=== PATIENT | male | born 1985 | race Caucasian/White ===

== ENCOUNTER 2017-10-15 16:06 | Outpatient (CLI) ==
[2013-06-20 06:17] VITALS: BMI 27.8
[2017-10-15 16:27] LABS: BILIRUBIN,URINE Negative (NEGATIVE); KETONES,URINE Negative (NEGATIVE); LEUKOCYTE ESTERASE ,URINE Trace (NEGATIVE); NITRITE,URINE Negative (NEGATIVE); PROTEIN,URINE Negative (NEGATIVE); URINE, BLOOD Negative (NEGATIVE)
[2017-10-15 16:34] LABS: ADD URINE MICROSCOPIC YES
[2017-10-15 16:39] LABS: ALBUMIN 4.1 g/dL (3.4-5.0); ALBUMIN/GLOBULIN RATIO 1.21; ANION GAP 14.4; BILIRUBIN,TOTAL 0.57 mg/dL (0.00-1.20); BUN/CREATININE RATIO 8.88; CALCIUM 9.9 mg/dL (8.2-10.2); CREATININE 0.9 mg/dL (0.60-1.10); POTASSIUM 4.4 mmol/L (3.5-5.1); TOTAL PROTEIN 7.5 g/dL (6.4-8.2)
== END 2017-10-15 16:07 | disposition home or self-care (01) ==
LOC: LAB 16:06
PROVIDERS: ATTEND Nurse Practitioner Family
DX: Z20.2 Contact with and (suspected) exposure to infections with a predominantly sexual mode of transmission (principal)
CPT/HCPCS: 36415; 80053; 80074; 81001; 86592; 86631; 86695; 86696; 86701; 87800

== ENCOUNTER 2019-03-19 05:03 | Outpatient (CLI) ==
[2019-03-19 08:36] VITALS: BMI 29.7
== END 2019-03-19 05:10 | disposition critical access hospital (66) ==
LOC: AMBL 05:03
PROVIDERS: ATTEND Family Medicine
DX: R40.4 Transient alteration of awareness (principal); R11.10 Vomiting, unspecified

== ENCOUNTER 2019-03-19 05:17 | Observation (INO) ==
[2019-03-19] MEDS ORDERED: SODIUM CHLORIDE 1,000 ML IV STA ×2 (05:45)
--- NOTE | 2019-03-19 06:27 | ED.PDOC ---
General ED Provider: Dr. FRANCISCO J TAN-ER Chief Complaint: Alcohol Intoxication Stated Complaint: brought in by p.d.---see nursing triage Time Seen by Physician: 05:30 Mode of Arrival: Ambulance Information Source: EMT, Police Exam Limitations: No limitations Nursing and Triage Documentation Reviewed and Agree: Yes Does patient meet sepsis criteria?: No System Inflammatory Response Syndrome: Not Applicable Sepsis Protocol: For patient's 13 years and over: Temp is 96.8 and below OR 101 and greater Pulse >90 BPM Resp >20/minute Acutely Altered Mental Status Are patient's symptoms suggestive of a new infection, such as: -Pneumonia -Skin, Soft Tissue -Endocarditis -UTI -Bone, Joint Infection -Implantable Device -Acute Abdominal Infection -Wound Infection -Meningitis -Blood Stream Catheter Infection -Unknown Neurological Complaint Exam - Altered Mental Status Complaint/Exam Current Mental Status: Unresponsiveness Symptoms Are: Still present Initial Severity: Mild Current Severity: Mild Eye Deviation Present: No Character: Reports: Responsiveness Aggravating: Reports: Ingestion Associated Signs and Symptoms: Denies: Dizziness, Weakness, Headache, Fever, Illness, Nuchal rigidity, Seizure, Nausea, Vomiting, Recently depressed, Trauma CVA Risk Factors: Reports: None Related Surgical History: Reports: None Carotid Bruit Present: No Nystagmus Present: No Gag Reflex Present: Yes Meningeal Signs Positive: No Focal Weakness: Present: None Focal Sensory Loss: Present: None Gait: Normal [id number]: Normal Findings Romberg Test Positive: No Babinski Sign: Negative Right, Negative Left Heel to Toe Normal: Yes Signs of Injury: Present: Normal findings Differential Diagnoses: Intoxication, Overdose Review of Systems - Review Of Systems Constitutional: Reports: No symptoms Eyes: Reports: No symptoms Ears, Nose, Mouth, Throat: Reports: No symptoms Respiratory: Reports: No symptoms Cardiac: Reports: No symptoms GI: Reports: No symptoms : Reports: No symptoms Musculoskeletal: Reports: No symptoms Skin: Reports: No symptoms Neurological: Reports: Cognitive dysfunction Endocrine: Reports: No symptoms Hematologic/Lymphatic: Reports: No symptoms All Other Systems: Reviewed and Negative Past Medical History - Past Medical History Previously Healthy: Yes Endocrine: Reports: Unknown Cardiovascular: Reports: Unknown Respiratory: Reports: Unknown Hematological: Reports: Unknown Gastrointestinal: Reports: Unknown Genitourinary: Reports: Unknown Neuro/Psych: Reports: Unknown Musculoskeletal: Reports: Unknown Cancer: Reports: Unknown - Surgical History General Surgical History: Reports: Unknown - Family History Family History: Reports: Unknown - Social History Smoking Status: Current every day smoker, Heavy tobacco smoker Hx Substance Use: No Alcohol Screening: Occasionally - Immunizations Tetanus Shot up to Date: Yes Physical Exam - Physical Exam Appearance: Well-appearing Eyes: KRYSTA, EOMI, Conjunctiva clear ENT: Ears normal, Nose normal, Oropharynx normal Respiratory: Airway patent, Breath sounds clear, Breath sounds equal, Respirations nonlabored Cardiovascular: RRR, Pulses normal, No rub, No murmur GI/: Soft, Nontender, No masses, Bowel sounds normal, No Organomegaly Musculoskeletal: Normal strength, ROM intact, No edema, No calf tenderness Skin: Warm, Dry, Normal color Neurological: Disoriented, Unresponsive Psychiatric: Affect appropriate, Mood appropriate Interpretation - Radiology Interpretation Radiology Interpretation By: Radiologist Radiology Results: Negative Exam Interpreted: CT Scan - EKG Interpretation Time of EKG #1: 06:33 Rate: Normal Rhythm: Sinus Ectopy: None Fowler: NL ST Segment: Normal Interpretation: nsr Critical Care Note - Critical Care Note Total Time (mins): 0 Course - Course Hematology/Chemistry: 03/19/19 05:55 03/19/19 05:55 Orders, Labs, Meds: Lab Review 03/19/19 03/19/19 05:55 05:55 WBC 6.83 RBC 4.34 L Hgb 13.6 L Hct 38.4 L MCV 88.5 MCH 31.3 H MCHC 35.4 RDW Coeff of Elis 13.2 Plt Count 204 Immature Gran % (Auto) 0.4 Neut % (Auto) 67.3 Lymph % (Auto) 20.1 Amite % (Auto) 10.2 H Eos % (Auto) 1.3 Baso % (Auto) 0.7 Immature Gran # (Auto) 0.0 Neut # (Auto) 4.6 Lymph # (Auto) 1.4 [place]ite # (Auto) 0.7 Eos # (Auto) 0.1 Baso # (Auto) 0.1 Sodium 141.8 Potassium 3.45 L Chloride 108.8 H Carbon Dioxide 21.7 L Anion Gap 14.75 BUN 10.5 Creatinine 0.77 Estimated GFR (MDRD) 114.00 BUN/Creatinine Ratio 13.63 Glucose 110.7 H Calcium 7.82 L Total Bilirubin 0.29 AST 26.6 ALT 22.4 Alkaline Phosphatase 89.1 Total Protein 6.80 Albumin 4.42 Globulin 2.38 Albumin/Globulin Ratio 1.85 Plasma/Serum Alcohol 220.4 H Orders Category Date Time Status ADMIT OBSERVATION [PLACE PATIENT OBSERVATION] .TO ADMISSION 03/19/19 06:30 Active SCU (MONITORED BED) EKG-(ED ONLY) Stat CARDIO 03/19/19 05:46 Completed ACTIVITY .BR with BRP CARE 03/19/19 06:31 Active INTAKE & OUTPUT Q8HR CARE 03/19/19 06:31 Active TELEMETRY MONITORING TELE CARE 03/19/19 06:31 Active VITAL SIGNS Q4HR CARE 03/19/19 06:31 Active VITAL SIGNS Q8HR CARE 03/19/19 06:31 Active REGULAR DIET DIETARY 03/19/19 Breakfast Ordered Astrobiologist [ED CARTOON ARTIST APPLIED] .ONCE EMERGENCY 03/19/19 05:45 Active IV [ED IV/MEDIPORT/POWERPORT] .ONCE EMERGENCY 03/19/19 05:36 Active CBC W/ AUTO DIFF Stat LAB 03/19/19 05:55 Completed COMPREHENSIVE METABOLIC PANEL Stat LAB 03/19/19 05:55 Completed ETOH LEVEL [BLOOD ALCOHOL] Stat LAB 03/19/19 05:55 Completed URINALYSIS C & S IF INDICATED Stat LAB 03/19/19 05:46 Uncollected URINE DRUG SCREEN (RAPID FOR ED) [DRUG SCREEN, URINE, LAB 03/19/19 05:46 Uncollected RAPID] Stat 0.9 % Sodium Chloride [Saline Flush] MEDS 03/19/19 05:36 Ordered 1 syr IVF PRN PRN Potassium Chloride/D5-0.9%NaCl [D5%-Ns-KCl 20 Meq/l IV MEDS 03/19/19 07:00 Ordered Evi] 1,000 ml IV 75 mls/hr Sodium Chloride 0.9% [Sodium Chloride] 1,000 ml MEDS 03/19/19 05:45 Active IV BOLUS Sodium Chloride 0.9% [Sodium Chloride] 1,000 ml MEDS 03/19/19 05:45 Active IV BOLUS RESUSCITATION STATUS Routine OTHERS 03/19/19 06:[address] HEAD W/O CONTRAST Stat RADS 03/19/19 05:46 Completed Medications Generic Name Dose Route Start Last Admin Trade Name Freq PRN Reason Stop Dose Admin Sodium Chloride 1,000 mls @ 1,000 mls/hr 03/19/19 05:45 03/19/19 06:22 Sodium Chloride IV 03/19/19 06:44 1,000 mls/hr BOLUS STA Administration Sodium Chloride 1,000 mls @ 1,000 mls/hr 03/19/19 05:45 03/19/19 06:22 Sodium Chloride IV 03/19/19 06:44 1,000 mls/hr BOLUS STA Administration Potassium Chloride/Dextrose/Sod Cl 1,000 mls @ 75 mls/hr 03/19/19 07:00 D5%-Ns-Kcl 20 Meq/L Iv Evi IV .[id number] JADE Sodium Chloride 1 syr 03/19/19 05:36 03/19/19 06:22 Saline Flush IVF 1 syr PRN PRN Administration To flush IV Vital Signs: Temp Pulse Resp BP Pulse Ox 03/19/19 06:20 70 20 103/60 97 03/19/19 05:27 98.2 F 84 14 119/62 100 Departure - Departure Time of Disposition: 06:30 Disposition: PLACED OBSERVATION Discharge Problem: Alcohol intoxication Instructions: Alcohol Intoxication (ED) Condition: Stable Pt referred to PMD for follow-up: No IPMP verified?: No Allergies/Adverse Reactions: Allergies No Known Allergies Allergy (Unverified 03/19/19 05:35) Home Medications: Ambulatory Orders 1 [Unobtainable] 03/19/19 Disposition Discussed With: Patient
--- NOTE | 2019-03-19 06:27 | CT ---
EXAM: CT head without contrast 03/19/2019. Sagittal and coronal reformatted images obtained HISTORY: Mental status changes COMPARISON: None. FINDINGS: There is no evidence of intracranial hemorrhage. The midline is maintained. There is no h ydrocephalus. No cerebellar tonsillar ectopia. Evaluation of the calvarium shows no fracture. Th e mastoid air cells are normally pneumatized. IMPRESSION: No acute intracranial abnormality.
[2019-03-19] MEDS ORDERED: D5%-NS-KCL 20 MEQ/L IV SOL 1,000 ML IV SCH (07:00)
[2019-03-19 08:36] VITALS: BMI 29.7
[2019-03-19] MEDS ORDERED: NICODERM 21 MG TD SCH (10:00)
[2019-03-19 10:08] VITALS: BP 113/73; TEMP 97.8
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
== END 2019-03-19 11:10 | disposition left against medical advice (07) ==
LOC: ED 05:17 → SCU 08:02 → UNDOADMOB 08:02 → UNDODISOB 11:10
PROVIDERS: ADMIT Family Medicine; ATTEND Family Medicine
DX: F10.129 Alcohol abuse with intoxication, unspecified (principal); Z72.0 Tobacco use; R40.20 Unspecified coma; R11.10 Vomiting, unspecified
CPT/HCPCS: 36415; 80053; 80306; 80307; 81001; 85025; 93005; 93010; 96360; 96361; 99220; 99284

== ENCOUNTER 2019-04-05 19:26 | Emergency (ER) ==
[2019-04-05 19:30] VITALS: BP 155/77; TEMP 98.3; BMI 30.7
--- NOTE | 2019-04-05 20:02 | ED.PDOC ---
General ED Provider: Dr. GABRIEL PERERA Chief Complaint: Non-specific Complaint Stated Complaint: Thinks that he may have a hernia on the right inguinal area. His job involves heavy lifting and has been going to the Gym lifting weights for the past two weeks. Time Seen by Physician: 19:40 Mode of Arrival: Walk-In Information Source: Patient Nursing and Triage Documentation Reviewed and Agree: Yes Does patient meet sepsis criteria?: No System Inflammatory Response Syndrome: Not Applicable Sepsis Protocol: For patient's 13 years and over: Temp is 96.8 and below OR 101 and greater Pulse >90 BPM Resp >20/minute Acutely Altered Mental Status Are patient's symptoms suggestive of a new infection, such as: -Pneumonia -Skin, Soft Tissue -Endocarditis -UTI -Bone, Joint Infection -Implantable Device -Acute Abdominal Infection -Wound Infection -Meningitis -Blood Stream Catheter Infection -Unknown GI Complaint Exam - Abdominal Pain Complaint/Exam Onset: Gradual Duration: 1 day Symptoms Are: Still present Timing: Intermittent Initial Severity: Mild Current Severity: Mild Location of Pain: Discrete Radiates To: Reports: Inguinal Character: Reports: Dull Associated Signs and Symptoms: Denies: Diaphoresis, Fever, Cough, Chest pain, Dizziness, Back pain, Constipation, Blood in stool, Dysuria, Urinary frequency, Decreased urine output, Decreased appetite, Discharge, Nausea, Vomiting, Diarrhea, Decreased activity AAA Risk Factors: Reports: None Cardiac Risk Factors: Reports: None Testicular Torsion Risk Factors: Reports: None Surgical Obstruction Risk Factors: Reports: None Abdominal Findings: Present: None Genitalia Exam: Present: Normal findings Male Body Picture: 1 - mild buldge measuring 3 cm with mild tenderness with couging or bearing down. Differential Diagnoses: Other (inguinal hernia ) Review of Systems - Review Of Systems Constitutional: Reports: No symptoms Eyes: Reports: No symptoms Ears, Nose, Mouth, Throat: Reports: No symptoms Respiratory: Reports: No symptoms Cardiac: Reports: No symptoms GI: Reports: Other (Right lower quadrant inguinal area pain and tenderness to palpation.) : Reports: No symptoms Musculoskeletal: Reports: No symptoms Skin: Reports: No symptoms Neurological: Reports: No symptoms Endocrine: Reports: No symptoms Hematologic/Lymphatic: Reports: No symptoms All Other Systems: Reviewed and Negative Past Medical History - Past Medical History Previously Healthy: Yes Endocrine: Reports: None Cardiovascular: Reports: None Respiratory: Reports: None Hematological: Reports: None Gastrointestinal: Reports: None Genitourinary: Reports: None Neuro/Psych: Reports: None Musculoskeletal: Reports: None Cancer: Reports: None - Surgical History General Surgical History: Reports: Unknown - Family History Family History: Reports: Unknown - Social History Smoking Status: Current every day smoker, Heavy tobacco smoker Hx Substance Use: No Alcohol Screening: Occasionally - Immunizations Tetanus Shot up to Date: Yes Physical Exam - Physical Exam Appearance: Well-appearing, No pain distress, Well-nourished Ill-appearing: Mild Pain Distress: Mild Eyes: KRYSTA, EOMI, Conjunctiva clear ENT: Ears normal, Nose normal, Oropharynx normal Respiratory: Airway patent, Breath sounds clear, Breath sounds equal, Respirations nonlabored Cardiovascular: RRR, Pulses normal, No rub, No murmur GI/: Soft, No masses, Bowel sounds normal, No Organomegaly, Tender (Right inguinal area hernia measuring 3 cm with mild tenderness to palpation. No incarceration appreciated. ) Musculoskeletal: Normal strength, ROM intact, No edema, No calf tenderness Skin: Warm, Dry, Normal color Neurological: Sensation intact, Motor intact, Reflexes intact, Cranial nerves intact, Alert, Oriented Psychiatric: Affect appropriate, Mood appropriate Critical Care Note - Critical Care Note Total Time (mins): 0 Course - Course Vital Signs: Temp Pulse Resp BP Pulse Ox 04/05/19 19:28 98.3 F 89 16 155/77 H 96 Departure - Departure Time of Disposition: 20:00 Disposition: HOME SELF-CARE Discharge Problem: Right groin hernia Instructions: Inguinal Hernia (ED) Condition: Fair Pt referred to PMD for follow-up: Yes IPMP verified?: No Additional Instructions: Take Over the counter Tylenol or Ibuprofen as needed for pain Use over the counter Truss as needed for heavy lifting at work Establish with a PCP and get referral to a Surgeon soon. Allergies/Adverse Reactions: Allergies No Known Allergies Allergy (Unverified 04/05/19 19:30) Home Medications: Ambulatory Orders 1 [No Reported Medications] 03/19/19 Disposition Discussed With: Patient
== END 2019-04-05 20:07 | disposition home or self-care (01) ==
LOC: ED 19:26
DX: K40.90 Unilateral inguinal hernia, without obstruction or gangrene, not specified as recurrent (principal); F17.210 Nicotine dependence, cigarettes, uncomplicated
CPT/HCPCS: 99281